=== PATIENT | male | born 1995 | race Hispanic/Latino ===

== ENCOUNTER 2017-05-20 06:07 | Emergency (ER) | payer OTHER ==
[2017-05-20] MEDS ORDERED: Tmp-Smz 800 mg-160 mg DS Tab PO STA (07:23)
--- NOTE | 2017-05-20 07:24 | ED PDOC ---
HPI: Skin/Bite Injury Time Seen by Provider: 05/20/17 07:04 Chief Complaint (Nursing): Abnormal Skin Integrity Chief Complaint (Provider): BUmps on left lower extremity History Per: Patient History/Exam Limitations: no limitations Onset/Duration Of Symptoms: Days Current Symptoms Are (Timing): Still Present Location Of Injury: Left: Leg (bumps behind left leg) Quality Of Symptoms: Painful, Itching, Draining Additional Complaint(s): Jose Saha a 22 year old male, presents to the ED with red, painful, itchy bumps behind his left leg. The patient states that he had a deep tissue massage a week ago and that is when he noticed the bumps. He states that the bumps wont go away and they formed a blister which popped and is now draining purulent discharge. Tetanus up to date. Past Medical History Reviewed: Historical Data, Nursing Documentation, Vital Signs Vital Signs: Last Vital Signs Temp 97.8 F 05/20/17 06:24 Pulse 55 L 05/20/17 06:24 Resp 16 05/20/17 06:24 BP 127/76 05/20/17 06:24 Pulse Ox 100 05/20/17 07:42 - Medical History PMH: No Chronic Diseases - Surgical History Surgical History: No Surg Hx - Family History Family History: States: Unknown Family Hx - Home Medications Home Medications: Ambulatory Orders Medication Instructions Recorded Sulfamethoxazole/Trimethoprim 1 tab PO BID #13 tab 05/20/17 [Bactrim DS 800 mg-160 mg] - Allergies Allergies/Adverse Reactions: Allergies Allergy/AdvReac Type Severity Reaction Status Date / Time No Known Allergies Allergy Verified 05/20/17 06:24 Review of Systems ROS Statement: Except As Marked, All Systems Reviewed And Found Negative Musculoskeletal: Positive for: Other (Red, purulent, itchy bumps behind left leg.) Physical Exam - Reviewed Nursing Documentation Reviewed: Yes Vital Signs Reviewed: Yes - Physical Exam Appears: Positive for: Non-toxic, No Acute Distress Skin: Positive for: Normal Color (Papular areas around 4-5 left half; minimal induration; clear serous drainage from open blister; no crepitus; no vesicles; no tenderness.), Warm, Dry Neurologic/Psych: Positive for: Alert, Oriented, Gait - ECG O2 Sat by Pulse Oximetry: 100 (RA) Pulse Ox Interpretation: Normal Medical Decision Making Medical Decision Makin Initial Impression: 22 year old male presenting with red, painful itchy bumps behind the left leg Initial Plan: * Bacrim DS Tab 1 tab PO * Reevaluation Scribe Attestation Documented by Bailey Wick acting as a scribe for Dasia Martinez MD. Provider Attestation All medical record entries made by the Scribe were at my direction and personally dictated by me. I have reviewed the chart and agree that the record accurately reflects my personal performance of the history, physical exam, medical decision making, and the department course for this patient. I have also personally directed, reviewed, and agree with the discharge instructions and disposition. Disposition - Clinical Impression Clinical Impression: Cellulitis - Disposition Disposition: Routine/Home Disposition Time: 07:22 Condition: STABLE Additional Instructions: FOLLOW-UP WITH PMD FOR REEVALUATION. Prescriptions: Sulfamethoxazole/Trimethoprim [Bactrim DS 800 mg-160 mg] 1 tab PO BID #13 tab Instructions: Cellulitis (ED) Forms: [facility] [facility] ([place])
[2017-05-20] MEDS ORDERED: Tmp-Smz 800 mg-160 mg DS Tab ONE (07:40)
[2017-05-20 07:46] VITALS: BP 118/78; PULSE 78; RESP 19; TEMP 97.6; O2SAT 99
== END 2017-05-20 07:46 | disposition home or self-care (01) ==
LOC: H.ER 06:07
DX: L03.116 Cellulitis of left lower limb (principal)